=== PATIENT | female | born 1950 | race Caucasian/White ===

== ENCOUNTER 2019-12-16 16:58 | Emergency (ER) | payer MEDICARE, SELFPAY ==
--- NOTE | ~2019-12-16 | XR_ITS ---
EXAMINATION: XR chest 1V portable 12/16/2019 17:46 INDICATION: Chest pressure, fever and headache. Cough. PROCEDURE: AP portable chest COMPARISON: 11/12/2019 FINDINGS: The lungs are clear. The cardiomediastinal silhouette is within normal limits. There are no pleural effusions. There is no pneumothorax suspected. There is a right shoulder arthroplasty. T here are severe degenerative change of the left glenohumeral joint. IMPRESSION: 1: NO ACUTE CARDIOPULMONARY DISEASE. Reviewed, dictated and finalized at location [facility].
--- NOTE | 2019-12-16 17:08 | ECG_ITS ---
Measurements Intervals [place] Rate: 59 P: 56 PA: 201 QRS: -6 QRSD: 106 T: 21 QT: 409 QTc: 408 Interpretive Statements SINUS BRADYCARDIA DELAYED PRECORDIAL R/S TRANSITION INFERIOR INFARCT, AGE INDETERMINATE BORDERLINE ST-T WAVE ABNORMALITY- ANTERIOR LEADS BASELINE ARTIFACT- I, II, III ABNORMAL ECG Electronically Signed On 12-17-2019 7:35:42 CDT by Aneudy Diaz D.O.
--- NOTE | 2019-12-16 17:09 | ED.GENADULT ---
HPI - General Adult General Chief complaint: Unspecified Stated complaint: fever/heaviness in chest/perez/dry cough Time Seen by Provider: 12/16/19 17:02 History of Present Illness HPI narrative: Patient is a 69 y/o female complaining of intermittent, diffuse chest pressure for last 2 weeks. There is no alleviating or aggravating factor. There is no pain radiation. She also has subjective fever, cough and headache. She did not check her temperature. Related Data Allergies Allergy/AdvReac Type Severity Reaction Status Date / Time codeine AdvReac Mild MAKES ME Verified 04/08/19 18:44 FEEL BAD Review of Systems Constitutional: Constitutional: Denies chills, Reports fever(s) (subjective), Reports headache(s) and Denies weakness Eyes: Eyes: Denies blurry vision ENT: Denies headache(s) and Denies neck pain Cardiovascular: Cardiovascular: Reports chest pain and Reports dyspnea Respiratory: Respiratory: Reports cough and Reports dyspnea Gastrointestinal: Gastrointestinal: Denies abdominal pain, Denies diarrhea, Denies nausea and Denies vomiting Genitourinary: Genitourinary: Denies hematuria and Denies dysuria Musculoskeletal: Musculoskeletal: Denies back pain and Denies neck pain Neurologic: Denies headache(s) and Denies weakness PMFSH Past Medical History Medical History HLD (hyperlipidemia) HTN (hypertension) Hypothyroid Seasonal allergies UTI (urinary tract infection) Surgical History Surgical History H/O: hysterectomy History of left ankle joint replacement History of right shoulder replacement Social History Social History Gender identity (if verbalized by the patient): Female Exam Const: General: no acute distress and well developed Orientation/consciousness: oriented to person, oriented to place, oriented to time and patient oriented x3 HENMT: Head: normocephalic Ears: external ears normal General nose exam: Normal external nose present Eyes: General: appearance normal, both eyes and all related structures Conjunctivae: conjunctivae normal Neck: Neck: normal visual inspection and full ROM Chest: Chest palpation & inspection: normal inspection of the chest and no tenderness Resp: Effort & Inspection: normal respiratory effort Auscultation: clear to auscultation bilaterally Cardio: Rate: regular rate Rhythm: regular rhythm GI: GI Palp: No abdominal tenderness and Yes Soft to palpation Skin: General skin exam: normal color and turgor normal Neuro: General: oriented to person, oriented to place, oriented to time and patient oriented x3 Cognition (Neuro): normal cognition Extrem: General: normal to inspection, full ROM and no pedal edema Psych: Appearance: grossly normal Mental Status: mental status grossly normal Affect: normal affect Course Reevaluation(s) Reevaluation #1: Informed patient that COVID test result is still pending. However, vitals are stable with no O2 requirement and Xray is negative. Patient is stable for discharge. Date: 12/16/19 Time: 21:12 Vital Signs Vital signs: Vital Signs Temperature 36.6 C 12/16/19 17:12 Pulse Rate 66 12/16/19 17:12 Respiratory Rate 16 12/16/19 17:12 Blood Pressure 174/93 H 12/16/19 17:12 Pulse Oximetry 98 12/16/19 17:12 Temperature 36.8 C 12/16/19 21:28 Pulse Rate 80 12/16/19 21:28 Respiratory Rate 18 12/16/19 21:28 Blood Pressure 132/60 12/16/19 21:28 Pulse Oximetry 99 12/16/19 21:28 Medical Decision Making Vital Signs Vital Signs: Vital Signs Temperature 36.6 C 12/16/19 17:12 Pulse Rate 66 12/16/19 17:12 Respiratory Rate 16 12/16/19 17:12 Blood Pressure 174/93 H 12/16/19 17:12 Pulse Oximetry 98 12/16/19 17:12 Temperature 36.8 C 12/16/19 21:28 Pulse Rate 80 12/16/19 21:28 Respiratory Rate 18 12/16/19 21:
[2019-12-16 17:12] VITALS: BP 174/93; PULSE 66; RESP 16; TEMP 36.6; O2SAT 98
[2019-12-16 17:27] LABS: Basophils Percent Auto 0.5 % (0.2-1.2); Hematocrit 35.6 % (37.0-47.0); Hemoglobin 11.6 g/dL (12.0-15.0); Immature Granulocyte Absolute 0.02 K/mm3 (0.00-0.031); Immature Granulocyte Percent A 0.2 % (0-0.5); Lymphocytes Absolute Auto 2.39 K/mm3 (0.9-3.2); Mean Corpuscular HGB Conc 32.6 g/dl (32-36); Mean Corpuscular Hemoglobin 28.1 pg (26-34); Mean Corpuscular Volume 86.2 fl (80-100); Mean Platelet Volume 8.5 fl (7.4-10.4); Monocytes Absolute Auto 0.7 K/mm3 (0.1-0.6); Monocytes Percent Auto 8.2 % (2.6-8.5); Neutrophils Absolute Auto 4.7 K/mm3 (1.3-6.7); Neutrophils Percent Auto 53.1 % (45.5-73.1); Platelet Count Result 343 k/mm3 (150-375); Red Blood Count 4.13 M/mm3 (4.2-5.4); Red Cell Distribution Width 14.4 % (11.5-14.5); White Blood Count 8.9 K/mm3 (4.5-10.0)
[2019-12-16 17:44] LABS: Alanine Aminotransferase 17 U/L (4-35); Albumin Level 4.4 g/dL (3.5-5.1); Alkaline Phosphatase 85 U/L (38-126); Aspartate Amino Transferase 26 U/L (14-36); Bilirubin,Total 0.1 mg/dL (0.2-1.3); Blood Urea Nitrogen 17 mg/dL (7-17); Calcium 8.7 mg/dL (8.4-10.2); Carbon Dioxide 25 mmol/L (22-30); Chloride 98 mmol/L (98-107); Estimated CRCL calculation 66 ml/min; Estimated Glomerular Filt Rate > 60; Glucose 107 mg/dL (65-105); Potassium 3.9 mmol/L (3.4-5.0); Sodium 132 mmol/L (137-145)
[2019-12-16 17:56] LABS: NT Pro B Type Natriuretic Pept 362 PG/ML (5-100); Troponin I < 0.012 ng/mL (0.000-0.034)
[2019-12-16 18:14] VITALS: BP 122/78; PULSE 56; RESP 18; O2SAT 99
[2019-12-16 18:19] LABS: D Dimer 0.49 ug/mL (<0.48)
[2019-12-16 19:20] VITALS: BP 138/87; PULSE 55; RESP 18; O2SAT 99
[2019-12-16 21:05] LABS: Troponin I < 0.012 ng/mL (0.000-0.034)
[2019-12-16 21:28] VITALS: BP 132/60; PULSE 80; RESP 18; TEMP 36.8; O2SAT 99
[2019-12-17 10:42] LABS: SARS-CoV-2 RNA PCR Negative
== END 2019-12-16 21:30 | disposition home or self-care (01) ==
PROVIDERS: Emergency Provider Emergency Medicine; PCP Internal Medicine
DX: R07.89 Other chest pain (principal); Z20.828 Contact with and (suspected) exposure to other viral communicable diseases; J06.9 Acute upper respiratory infection, unspecified; E78.5 Hyperlipidemia, unspecified; I10 Essential (primary) hypertension; E03.9 Hypothyroidism, unspecified; Z87.440 Personal history of urinary (tract) infections; Z96.662 Presence of left artificial ankle joint; Z96.611 Presence of right artificial shoulder joint; R00.1 Bradycardia, unspecified; R94.31 Abnormal electrocardiogram [ECG] [EKG]; R06.00 Dyspnea, unspecified
CPT/HCPCS: 36415; 71045; 80053; 83880; 84484; 85025; 85380; 87635; 93005; 99284; C9803; U0003

== ENCOUNTER → 2020-12-10 12:37 | Outpatient (CLI) | payer MEDICARE, SELFPAY ==
--- NOTE | ~2020-12-10 | CT_ITS ---
EXAMINATION: CT brain wo con DATE: 12/10/2020 12:56 INDICATION: Chronic posttraumatic headache TECHNIQUE: Computed tomography (CT) of the head was performed without intravenous contrast. The mA wa s adjusted according to patient size. Iterative reconstruction technique was employed. Exam dose: 52 4.62 mGy-cm total exam DLP. COMPARISON: 04/25/2019 CT brain FINDINGS: No intraperitoneal mass lesion or hemorrhage or cerebrovascular accident is evident. No mid line shift or mass effect effect. There is intracranial cerebral atherosclerosis. There is nonspecific diminished attenuation of the ce rebral white matter, likely due to chronic small vessel ischemic changes. No subdural or epidural hematoma. No fracture or bone destruction of the cranial vault. Included mastoid air cells and paranasal sinuse s are normally developed and aerated with exception of mild soft tissue thickening along the posterio r medial wall of the right sphenoid sinus. IMPRESSION: Cerebral atherosclerosis and chronic small vessel ischemic changes of the cerebral white matter No acute intracranial abnormality Reviewed, dictated and finalized at [facility]. Reviewed, dictated and finalized at location A.
== END ==
PROVIDERS: Visit Provider Nurse Practitioner Family
DX: G44.329 Chronic post-traumatic headache, not intractable (principal)
CPT/HCPCS: 70450

== ENCOUNTER → 2021-04-17 09:58 | Outpatient (CLI) | payer MEDICARE, SELFPAY ==
--- NOTE | ~2021-04-17 | MR_ITS ---
EXAMINATION: MR hip RT wo con DATE: 04/17/2021 11:08 INDICATION: Right hip pain. TECHNIQUE: Magnetic resonance imaging (MRI) of the right hip was performed without intravenous contra st. Sequences included axial and coronal PD-weighted FS FSE and axial T1-weighted FSE of the pelvis. Sequences of the hip included 2D FIESTA, T1-weighted fast GRE, and axial, coronal, and sagittal PD-we ighted FS FSE. COMPARISON: None FINDINGS: Bones/cartilage: There is lumbar dextroscoliosis and severe spondylosis. No fracture. There is severe right hip joint osteoarthritis including full-thickness cartilage loss and superior subchondral cysts. There is mild left hip osteoarthritis. Labrum: There is maceration of the right acetabular labrum. Fluid: There are moderate-sized right and small left hip joint effusions. There is mild bilateral trochanter ic bursitis. Soft tissues: There is a partial tear of right gluteus minimus tendon and moderate tendinopathy of right gluteus me ruth tendon. There is a partial tear of left gluteus minimus tendon. There is mild tendinopathy of le ft gluteus medius medius. There is mild tendinopathy of the hamstring origins. The iliopsoas tendons are normal. There is a right inguinal hernia containing fat. IMPRESSION: 1. Severe right hip osteoarthritis and mild left hip osteoarthritis. 2. Moderate-sized right hip joint effusion and small left hip joint effusion. 3. Partial tears of the bilateral gluteus minimus tendons with mild bilateral trochanteric bursitis. Reviewed, dictated and finalized at location A. PE MARKER IMPRESSION: 1. Severe right hip osteoarthritis and mild left hip osteoarthritis. 2. Moderate-sized right hip joint effusion and small left hip joint effusion. 3. Partial tears of the bilateral gluteus minimus tendons with mild bilateral t rochanteric bursitis.
== END ==
PROVIDERS: Visit Provider Nurse Practitioner Family
DX: M16.11 Unilateral primary osteoarthritis, right hip (principal); M25.451 Effusion, right hip; S76.011A Strain of muscle, fascia and tendon of right hip, initial encounter; M70.61 Trochanteric bursitis, right hip
CPT/HCPCS: 73721

== ENCOUNTER 2022-04-23 12:21 | Emergency (ER) | payer MEDICARE, SELFPAY ==
[2022-04-23 12:35] VITALS: BP 123/73; PULSE 78; RESP 18; TEMP 36.7; O2SAT 94
--- NOTE | 2022-04-23 14:02 | ED.WOUNDLAC ---
HPI - Wound/Laceration General Chief Complaint: Wound/Laceration Stated Complaint: infection on leg Time Seen by Provider: 04/23/22 13:35 History of Present Illness HPI narrative: Patient is a 71-year-old female who presents ER with concerns for a nonhealing wound to the right hip. Developed over a week ago. She has been on oral doxycycline and some topical mupirocin. She finished oral antibiotic. There is no fevers or chills or sweats. No lymphangitic streaking or tenderness. She did not see a spider around her nor does she know if she was bitten. She denies any additional trauma. No vesicles/blisters that she noted. Related Data Allergies Allergy/AdvReac Type Severity Reaction Status Date / Time codeine AdvReac Mild MAKES ME Verified 04/08/19 18:44 FEEL BAD amoxicillin [From Augmentin] AdvReac Nausea Verified 04/23/22 13:39 clavulanic acid AdvReac Nausea Verified 04/23/22 13:39 [From Augmentin] Review of Systems Constitutional: Constitutional: Denies chills and Denies fever(s) Integumentary/Breasts: Skin/Breast: Denies pruritus, Denies erythema, Denies rash and Reports skin ulcer Neurologic: Denies numbness and Denies weakness PMFSH Past Medical History Medical History (Updated 04/23/22 @ 14:06 by Chilango Hearn MD) HLD (hyperlipidemia) HTN (hypertension) Hypothyroid Seasonal allergies UTI (urinary tract infection) Surgical History Surgical History H/O: hysterectomy History of left ankle joint replacement History of right shoulder replacement Social History Social History Gender identity (if verbalized by the patient): Female Exam Narrative: GENERAL: Well-appearing, well-nourished, and in no acute distress. HEAD: Normocephalic, atraumatic. EXTREMITIES: Normal range of motion. No edema. SKIN: Warm, dry. Right hip with 3 areas of healing ulceration. 2 are subhalf centimeter and without any additional granulation tissue. The largest is 1 cm in diameter and has healing tissue in the center. There is no surrounding cellulitis. No abscess. No vesicles or excoriations. NEURO: Alert and oriented x3. PSYCH: Normal mood and affect. Course Course Emergency Course: Given reassurance. This does appear to look like a healing spider bite. Discharge. Vital Signs Vital signs: Vital Signs Temperature 98.0 F 04/23/22 12:35 Pulse Rate 78 04/23/22 12:35 Respiratory Rate 18 04/23/22 12:35 Blood Pressure 123/73 04/23/22 12:35 Pulse Oximetry 94 04/23/22 12:35 Oxygen Delivery Room Air 04/23/22 12:35 Temperature 98.0 F 04/23/22 12:35 Pulse Rate 78 04/23/22 12:35 Respiratory Rate 18 04/23/22 12:35 Blood Pressure 123/73 04/23/22 12:35 Pulse Oximetry 94 04/23/22 12:35 Oxygen Delivery Room Air 04/23/22 12:35 Discharge Plan Discharge Clinical Impression: Skin ulcer Patient Disposition: Home, Self-Care Condition: Stable Instructions: Chronic Wounds (ED) Additional Instructions: You have a healing ulceration to her right hip. There is no evidence of infection. Return the ER if it comes red and hot, its draining pus, you have fever over 100.4 ?F. Follow-up/Referrals: PHYSICIAN NOT ON STAFF,NONSTAFF [Primary Care Provider] - 1 Week
== END 2022-04-23 14:15 | disposition home or self-care (01) ==
PROVIDERS: Emergency Provider Emergency Medicine
DX: L98.499 Non-pressure chronic ulcer of skin of other sites with unspecified severity (principal); E78.5 Hyperlipidemia, unspecified; I10 Essential (primary) hypertension; E03.9 Hypothyroidism, unspecified
CPT/HCPCS: 99281

== ENCOUNTER 2022-09-08 11:00 | Outpatient (RCR) | payer MEDICARE, SELFPAY ==
[2022-06-18 14:38] VITALS: BP_SYST 90
--- NOTE | 2022-06-18 15:36 | PTOPEVAL1 ---
Assessment and note entered by Andrei Ly, PT, DPT Evaluation Information Assessment Status Evaluation Diagnosis L reverse total shoulder and L scapular fx fixation Onset 05/27/22 Subjective Information Pt states overall she is doing well, the first couple of days were rough but now she is doing good. She states first thing in the morning she is pretty sore but this goes away. Pt states she is no longer wearing the sling except for in crowds. Reported Pain Level Pain Score 0: Self Report Assessment PT Clinical Summary Peri presents to therapy today for her initial evaluation with a diagnosis of a L reverse total shoulder arthroplasty performed on 05/27/22. Today she demonstrates active flexion and abduction to ~60 deg, passive flexion to 120 deg, and passive abduction to 90 deg. Skilled physical therapy services are indicated to progress through surgical protocol, to improve ROM, scapular mobility, and to progress towards a return to baseline function. Plan of Care Interventions Electrical Stimulation,Hot Pack/Cold Pack,Manual Therapy,Neuro Re-education,Patient/Caregiver Educati,Therapeutic Activities,Therapeutic Exercise PT Services Indicated Yes Treatment Frequency and 2x/wk for 5 wks Duration These treatments will address the objective and functional deficits as defined above. The patient will be advanced safely and appropriately in order for the patient to progress towards his/her prior level of function. Additional exercises will be introduced and as well as a comprehensive home exercise program upon discharge, if needed, ?to ensure carryover of functional gains achieved in the clinic. This treatment plan has been reviewed and agreement upon by the patient.
[2022-07-19 14:43] VITALS: BP_SYST 135
--- NOTE | 2022-07-19 16:31 | PTOPPROG ---
Assessment and note entered by Andrei Ly, PT, DPT Evaluation Information Assessment Status Progress Diagnosis L reverse total shoulder and L scapular fx fixation Onset 05/27/22 Subjective Information Pt states overall her shoulder is doing pretty good. Assessment PT Clinical Summary Peri presents to therapy today for her progress report following 9 visits of skilled therapy to treat her reverse total shoulder arthroplasty. Today she is making small progress with her active motion, flexion currently to 80 deg and scaption to 70 deg. Passively she is progressing well and is beyond 130 deg in both flexion and scaption. She continues to require extensive cueing to limit substitutions with exercise. She is progressing well towards her goals and reports good compliance with her HEP. Continuation of skilled physical therapy services are indicated to progress through surgical protocol, to limit impairment, and to return to baseline function. Plan of Care Interventions Electrical Stimulation,Hot Pack/Cold Pack,Manual Therapy,Neuro Re-education,Patient/Caregiver Educati,Therapeutic Activities,Therapeutic Exercise PT Services Indicated Yes Treatment Frequency and 2x/wk for 5 wks Duration These treatments will address the objective and functional deficits as defined above. The patient will be advanced safely and appropriately in order for the patient to progress towards his/her prior level of function. Additional exercises will be introduced and as well as a comprehensive home exercise program upon discharge, if needed, ?to ensure carryover of functional gains achieved in the clinic. This treatment plan has been reviewed and agreement upon by the patient.
--- NOTE | 2022-08-03 11:11 | PCPTNOTE ---
Patient canceled this date due to illness.
--- NOTE | 2022-08-05 12:59 | PCPTNOTE ---
Patient called to cancel due to illness.
[2022-08-12 11:01] VITALS: BP_SYST 120
--- NOTE | 2022-08-12 11:58 | PTOPPROG ---
Assessment and note entered by Andrei Ly, PT, DPT Evaluation Information Assessment Status Progress Diagnosis L reverse total shoulder and L scapular fx fixation Onset 05/27/22 Subjective Information Pt states she states she things she is almost fully recovered. Pt reports 80% improvement in her overall symptoms. She states she no longer wakes up in the night d/t shoulder pain. Assessment PT Clinical Summary Peri presents to therapy today for her progress report following 13 visits of skilled therapy to treat her L reverse TSA. Today she demonstrates improvement in her active shoulder, flexion now to 108deg and abduction to 85 deg, but this continues to be decreased from her R shoulder. She reports well controlled pain thus far. Continuation of skilled physical therapy services are indicated to improve active and passive ROM, to progress strength when indicated, to progress through surgical protocol, and to promote unlimited functional mobility. Plan of Care Interventions Electrical Stimulation,Hot Pack/Cold Pack,Manual Therapy,Neuro Re-education,Patient/Caregiver Educati,Therapeutic Activities,Therapeutic Exercise PT Services Indicated Yes Treatment Frequency and 2x/wk for 4 wks Duration These treatments will address the objective and functional deficits as defined above. The patient will be advanced safely and appropriately in order for the patient to progress towards his/her prior level of function. Additional exercises will be introduced and as well as a comprehensive home exercise program upon discharge, if needed, ?to ensure carryover of functional gains achieved in the clinic. This treatment plan has been reviewed and agreement upon by the patient.
--- NOTE | 2022-08-25 11:37 | PCPTNOTE ---
Patient called to cancel on voicemail but left no reason.
[2022-09-08 11:08] VITALS: BP_SYST 140
--- NOTE | 2022-09-08 11:56 | PTOPPROG ---
Assessment and note entered by Andrei Ly, PT, DPT Evaluation Information Assessment Status Progress Diagnosis L reverse total shoulder and L scapular fx fixation Onset 05/27/22 Subjective Information Pt states she went to see her surgeon who extended her therapy order. She states she can not light strengthening now and states the surgeon is worried about her plate staying in place. Assessment PT Clinical Summary Peri presents to therapy today for her progress report following 17 visits of skilled therapy to treat her L reverse total shoulder replacement. Today she demonstrates active flexion of 120 deg and active abduction to 92 deg, she is able to achieve 140 deg of passive motion in ea direction. Currently her shoulder strength is grossly 4/5 and is most limited with overhead motions. Continuation of skilled physial therapy services are indicated to continue progressing ROM and strength, and to promote unlimited functional mobiltiy. Plan of Care Interventions Electrical Stimulation,Hot Pack/Cold Pack,Manual Therapy,Neuro Re-education,Patient/Caregiver Educati,Therapeutic Activities,Therapeutic Exercise PT Services Indicated Yes Treatment Frequency and 2x/wk for 5 wks Duration These treatments will address the objective and functional deficits as defined above. The patient will be advanced safely and appropriately in order for the patient to progress towards his/her prior level of function. Additional exercises will be introduced and as well as a comprehensive home exercise program upon discharge, if needed, ?to ensure carryover of functional gains achieved in the clinic. This treatment plan has been reviewed and agreement upon by the patient.
--- NOTE | 2022-09-13 10:23 | PCPTNOTE ---
This treatment is being continued on visit number [id number]. Please see documentation on both accounts to view progress. Completed interventions, outcomes, and problems have been marked as Inactive to facilitate the copying of the Care plan routine for recurring accounts.
== END 2022-09-13 10:15 | disposition home or self-care (01) ==
LOC: ANHGOSHPT 11:00
DX: Z48.89 Encounter for other specified surgical aftercare (principal); Z96.612 Presence of left artificial shoulder joint
CPT/HCPCS: 97014; 97110; 97112; 97140; 97161; 99199; G0283

== ENCOUNTER 2022-10-14 11:00 | Outpatient (RCR) | payer MEDICARE, SELFPAY ==
--- NOTE | 2022-09-13 10:24 | PCPTNOTE ---
The treatment documented on this account is a continuation of the treatment documented on visit number [id number]. Please see documentation on both accounts to view progress. The Plan of Care has been transitioned and updated within the new V#. I have addressed and agree with the discipline specific Problems, Interventions, and Goals for the current certification period. Completed interventions, outcomes, and problems have been marked as Inactive to facilitate the copying of the Care plan routine for recurring accounts.
--- NOTE | 2022-09-23 11:53 | PCPTNOTE ---
Patient called & cancelled scheduled appointment on 09/20 due to having another doctors appointment.
--- NOTE | 2022-10-05 10:38 | PCPTNOTE ---
Patient called & cancelled scheduled appointment this date due to having a doctors appointment.
[2022-10-14 11:01] VITALS: BP_SYST 128
--- NOTE | 2022-10-14 11:40 | PTOPDC ---
Assessment and note entered by Andrei Ly, PT, DPT Evaluation Information Assessment Status Discharge - Pt Not Present Diagnosis L reverse total shoulder Onset 05/27/23 Subjective Information Pt reports overall her shoulder is doing pretty well. She states sometimes her arm feels tired and weak but this is getting better. Pt reports 90% improvement in overall symptoms. Reported Pain Level Pain Score 0: Self Report Assessment PT Clinical Summary Peri presents to therapy today for her progress report following 25 visits of skilled therapy to treat the strength and mobility deficts following a L reverse total shoulder 05/27/23. Today she demonstrates improve active flexion to 135 deg and abduction to 115 deg, still decreased from her uninvolved side. Her shoulder strength is grossly 4-/5 on the L and 4+/5 on the R. She states she would like to continue her HEP on her own and does not anymore skilled therapy. She will be discharged at this time. Plan of Care PT Services Indicated No
== END 2022-10-15 15:38 | disposition home or self-care (01) ==
LOC: ANHGOSHPT 11:00
DX: Z48.89 Encounter for other specified surgical aftercare (principal); Z96.612 Presence of left artificial shoulder joint
CPT/HCPCS: 97014; 97110; 97112; 97140; 97530; G0283

== ENCOUNTER 2022-12-02 11:00 | Outpatient (RCR) | payer MEDICARE, SELFPAY ==
--- NOTE | 2022-11-03 15:15 | PTOPEVAL1 ---
Assessment and note entered by Andrei Ly, PT, DPT Evaluation Information Assessment Status Evaluation Diagnosis L hip bursitis Subjective Information Pt states she had an injection on her hip a couple of weeks ago and it is doing much better now. She states she was doing some walking the other day and both hips just started to ache. She states she ices her hip daily and does some stretching. Reported Pain Level Pain Score 0: Self Report Assessment PT Clinical Summary Peri presents to therapy today for her initial evaluation with a diagnosis of L hip bursitis. Today she demonstrates good LE strength with hip abduction being the most limited against resistance. She demonstrates tenderness to palpation inferior to the PSIS. She ambulates with a shortened stride length and a mild pelvic drop during R single leg stance. Skilled therapy services are indicated to address strength deficits , pelvic stability, to manage pain, and to return to PLOF. Plan of Care Interventions Electrical Stimulation,Gait Training,Hot Pack/Cold Pack,Manual Therapy,Neuro Re-education,Patient/ Caregiver Educati,Therapeutic Activities, Therapeutic Exercise PT Services Indicated Yes Treatment Frequency and 2x/wk for 4 wks Duration These treatments will address the objective and functional deficits as defined above. The patient will be advanced safely and appropriately in order for the patient to progress towards his/her prior level of function. Additional exercises will be introduced and as well as a comprehensive home exercise program upon discharge, if needed, ?to ensure carryover of functional gains achieved in the clinic. This treatment plan has been reviewed and agreement upon by the patient.
--- NOTE | 2022-11-03 15:16 | OPREHPOC ---
Outpatient Therapy Plan of Care This is a Multidisciplinary Plan of Care that may contain components documented by all disciplines (PT, OT, and ST.) PT Problem 1 PT Problem #1 Knowledge Deficit PT Goal 1 Goal Pt to be IND with issued HEP Target Visit 8 PT Problem 2 PT Problem #2 Pain PT Goal 1 Goal Pt to report hip pain no greater than 3/10 in the last week. Target Visit 8 Progress Met PT Goal 2 Goal Pt to report being able to walk for 1 mile without an increase in hip pain. Target Visit 8 Progress Met PT Problem 3 PT Problem #3 Impaired Strength PT Goal 1 Goal Pt to improve hip abduction strength to 4+/5 Target Visit 8 PT Goal 2 Goal Pt to demonstrate neutral pelvic alignment during ambulation Target Visit 8 PT Problem 4 PT Problem #4 Impaired Gait PT Goal 1 Goal Pt to ambulate 350ft during 2 min walk test Target Visit 8
--- NOTE | 2022-11-18 12:45 | PCPTNOTE ---
pt. called to cancel due to illness
--- NOTE | 2022-11-26 15:32 | PCPTNOTE ---
On 11/26/22, the student, Fawn Chowdary, provided care and completed [facility] documentation on this patient. I have reviewed the student's documentation and agree with the findings.
--- NOTE | 2022-12-02 15:51 | PTOPDC ---
Assessment and note entered by Andrei Ly, PT, DPT Evaluation Information Assessment Status Discharge Diagnosis L hip bursitis Subjective Information Pt states her L hip is doing fine, and now her R hip and knee is starting to bother her. She states she has been using red light therapy and ice baths to help with her back and hip pain. Reported Pain Level Pain Score 0,0,0: Self Report Assessment PT Clinical Summary Peri presents to therapy today for her progress report following 6 visits of skilled therapy to treat her diagnosis of L hip bursitis. Today she demonstrates improved LE strength and balance. She continues to have pelvic asymmetries during ambulation and reports an increase in R hip pain since starting therapy. She has met all of her therapy goals addressing her L hip bursitis and will therefore be discharged from skilled therapy services at this time. Plan of Care PT Services Indicated No
== END 2022-12-03 08:37 | disposition home or self-care (01) ==
LOC: ANHGOSHPT 11:00
DX: M25.552 Pain in left hip (principal); M70.62 Trochanteric bursitis, left hip
CPT/HCPCS: 97110; 97112; 97140; 97161; 97530

== ENCOUNTER 2023-02-11 12:31 | Emergency (ER) | payer MEDICARE, SELFPAY ==
--- NOTE | ~2023-02-11 | XR_ITS ---
EXAMINATION: XR chest 2V DATE: 02/11/2023 13:04 INDICATION: Cough and shortness of breath TECHNIQUE: PA and lateral views of the chest are obtained. COMPARISON: 12/16/2019 FINDINGS: The lungs are free of acute opacities. No pleural effusion or pneumothorax. The cardiomedia stinal silhouette is normal. There is moderate thoracic spondylosis. There are 25 degrees of thoracol umbar levoscoliosis. There are changes of bilateral shoulder arthroplasty. Plate and screw fixation i s seen at the left acromioclavicular joint. IMPRESSION: 1. No acute cardiopulmonary abnormality. Reviewed, dictated and finalized at location B.
--- NOTE | 2023-02-11 12:42 | ED.URI ---
HPI - URI/Sore Throat General Chief Complaint: Upper Respiratory Infection Stated Complaint: COUGH/CHILLS/SORE THROAT Source: patient and RN notes reviewed Mode of arrival: ambulatory Limitations: no limitations History of Present Illness HPI Narrative: 72 y/o female presented for c/o cough for 2 weeks, with fatigue, right frontal headache, and nasal congestion/drainage. States cough is productive and reports sob with exertion and wheezing with the cough. Not taking anything for symptoms. Denies known sick contacts. Denies cp, palpitations, n/v/d/f/c. MD elicited complaint: cough Related Data Home Medications Medication Instructions Recorded Confirmed alprazolam 1 mg tablet 1 mg PO DAILY 02/11/23 02/11/23 amlodipine 5 mg tablet 5 mg PO DAILY 02/11/23 02/11/23 atorvastatin 40 mg tablet 40 mg PO DAILY 02/11/23 02/11/23 diclofenac sodium 75 mg 75 mg PO DAILY 02/11/23 02/11/23 tablet,delayed release ergocalciferol (vitamin D2) 1,250 50,000 unit PO DAILY 02/11/23 02/11/23 mcg (50,000 unit) capsule eszopiclone 3 mg tablet 3 mg PO DAILY 02/11/23 02/11/23 levothyroxine 75 mcg tablet 75 mcg PO DAILY 02/11/23 02/11/23 mirabegron 25 mg tablet,extended 25 mg PO DAILY 02/11/23 02/11/23 release 24 hr (Myrbetriq) omeprazole 20 mg capsule,delayed 20 mg PO DAILY 02/11/23 02/11/23 release ramipril 10 mg capsule 10 mg PO DAILY 02/11/23 02/11/23 simvastatin 40 mg tablet 40 mg PO DAILY 02/11/23 02/11/23 tramadol 50 mg tablet 50 mg PO DAILY 02/11/23 02/11/23 Allergies Allergy/AdvReac Type Severity Reaction Status Date / Time codeine AdvReac Mild MAKES ME Verified 02/11/23 12:46 FEEL BAD amoxicillin [From Augmentin] AdvReac Nausea Verified 02/11/23 12:46 clavulanic acid AdvReac Nausea Verified 02/11/23 12:46 [From Augmentin] Review of Systems Review of Systems: CONSTITUTIONAL: Endorses malaise, denies chills, sweats, fever EYES: Denies visual changes, redness, or discharge ENT: Reports rhinorrhea, congestion, sinus pain, otalgia, sore throat CARDIOVASCULAR: Denies chest pain, palpitations, edema RESPIRATORY: Reports cough, post nasal drainage, dyspnea GASTROINTESTINAL: Denies abdominal pain, nausea, vomiting, diarrhea SKIN: Denies rash or itching MUSCULOSKELETAL: Denies myalgia NEUROLOGIC: Reports right frontal headache PMFSH Past Medical History Medical History (Updated 02/11/23 @ 13:27 by Caro Huffman APRN) HLD (hyperlipidemia) HTN (hypertension) Hypothyroid Seasonal allergies UTI (urinary tract infection) Surgical History Surgical History H/O: hysterectomy History of left ankle joint replacement History of right shoulder replacement Social History Social History Gender identity (if verbalized by the patient): Female Exam Narrative: GENERAL: mildly ill-appearing, nontoxic EYES: conjunctivae clear ENT: Mucous membranes moist. Nasal congestion. TM pearly arellano with dull light reflex bilaterally; no tragal tenderness. Oropharynx erythematous without lesions or exudate NECK: Supple. No lymphadenopathy CHEST: Clear to auscultation, breath sounds equal. Moist cough. No wheezing, rhonchi, rales, or stridor. No respiratory distress, speaks in full sentences. HEART: Regular rate and rhythm. No murmur heard. SKIN: Warm, dry, no rash. NEURO: Alert and oriented x3. PSYCH: Normal mood and affect Course Course Emergency Course: Patient is aware of diagnosis, understands and agrees to treatment plan. Anticipatory guidance given. Patient agrees to follow-up as directed and is aware of reasons to seek care at the emergency department. Portions of this record may have been created with voice recognition software Level of Care: Express Care Visit Vital Signs Vital signs: Vital Signs Temperature 97.4 F L 02/11/23 12:53 Pulse Rate 71 02/11/23 12:53 Respiratory Rate 16
[2023-02-11 12:53] VITALS: BP 142/93; PULSE 71; RESP 16; TEMP 36.3; O2SAT 99
[2023-02-11 12:54] VITALS: BP 142/93; PULSE 71; RESP 16; TEMP 36.3; O2SAT 99
== END 2023-02-11 13:31 | disposition home or self-care (01) ==
PROVIDERS: Emergency Provider Nurse Practitioner Family
DX: J06.9 Acute upper respiratory infection, unspecified (principal); Z20.822 Contact with and (suspected) exposure to COVID-19; E78.5 Hyperlipidemia, unspecified; I10 Essential (primary) hypertension; E03.9 Hypothyroidism, unspecified; Z96.662 Presence of left artificial ankle joint; Z96.611 Presence of right artificial shoulder joint
CPT/HCPCS: 71046; 87426; 99213; C9803; G0463

== ENCOUNTER → 2023-02-28 10:39 | Outpatient (CLI) | payer MEDICARE, SELFPAY ==
--- NOTE | ~2023-02-28 | MR_ITS ---
EXAMINATION: MR lumbar spine wo con DATE: 02/28/2023 11:26 INDICATION: Moderate thoracolumbar scoliosis. Chronic low back pain. TECHNIQUE: Magnetic resonance imaging (MRI) of the lumbar spine was performed without intravenous con trast. Sequences included sagittal T2-weighted FSE, sagittal T2-weighted FS FSE, sagittal T1-weighted FSE, and axial T2-weighted FSE. COMPARISON: None FINDINGS: There is 32 degrees dextroscoliosis of lumbar spine. There is 3 mm retrolisthesis of L2 on L3 and L3 on L4 and 3 mm anterolisthesis of L4 on L5. There is severely decreased disc height from L1 -L2 through L5-S1 with endplate remodeling. The distal spinal cord signal intensity is normal. The co nus medullaris is at L1. The following disc levels are specifically discussed: L1-L2: The disc is bulging. There is severe bilateral facet joint osteoarthritis. There is mild bilat eral neural foraminal stenosis. There is mild central canal stenosis. L2-L3: The disc is bulging. There is mild right and moderate left facet joint osteoarthritis. There i s mild right and moderate left neural foraminal stenosis. There is mild central canal stenosis. L3-L4: The disc is bulging. There is moderate bilateral facet joint osteoarthritis. There is mild rig ht and moderate left neural foraminal stenosis. There is mild central canal stenosis. L4-L5: The disc is bulging. There is severe bilateral facet joint osteoarthritis. There is mild bilat eral neural foraminal stenosis. There is moderate central canal stenosis. L5-S1: The disc is bulging. There is severe right and moderate left facet joint osteoarthritis. There is mild bilateral neural foraminal stenosis. There is mild central canal stenosis. IMPRESSION: 1. Severe lumbar spondylosis. 2. Lumbar dextroscoliosis. Reviewed, dictated and finalized at location A.
== END ==
DX: M41.125 Adolescent idiopathic scoliosis, thoracolumbar region (principal); M47.816 Spondylosis without myelopathy or radiculopathy, lumbar region
CPT/HCPCS: 72148

== ENCOUNTER 2023-03-08 11:36 | Emergency (ER) | payer MEDICARE, SELFPAY ==
--- NOTE | ~2023-03-08 | XR_ITS ---
XR chest 2V DATE: 03/08/2023 13:13 INDICATION: Cough for one month TECHNIQUE: PA and lateral views COMPARISON: 02/11/2023 2 view chest FINDINGS: Heart size is within normal limits. Is aortic calcification and unfolding. No hilar or medi astinal enlargement. Chronic moderate elevation right diaphragm. No pulmonary infiltrate or consolidation, pleural effusion or pulmonary vascular congestion or pneumo thorax. There is dextroscoliosis and degenerative change of the thoracic spine, levoscoliosis of the lower th oracic and upper lumbar spine and rotatory dextroscoliosis of the lumbar spine. Bilateral glenohumeral joint replacement. Plate and screws along the left acromion process. IMPRESSION: No active cardiopulmonary disease or significant change since 02/11/2023 Reviewed, dictated and finalized at location L. IMPRESSION: No active cardiopulmonary disease or significant change since 023
[2023-03-08 11:50] VITALS: BP 134/80; PULSE 77; RESP 20; TEMP 36.5; O2SAT 97
[2023-03-08 13:00] VITALS: RESP 18
--- NOTE | 2023-03-08 13:04 | ED.GENADULT ---
HPI - General Adult General Chief complaint: Unspecified Stated complaint: cough Time Seen by Provider: 03/08/23 13:03 Source: patient Mode of arrival: ambulatory Limitations: no limitations History of Present Illness HPI narrative: Patient is a 72 y/o female who presents to the ED with c/o a cough. Patient reports having a persistent cough for the last 1 month. She was seen at an 3 weeks ago and Rx'd levaquin and short course of steroids. She has since also completed a medrol dosepak. She has also been using tessalon perles and Delsym w/o relief. She reports occasional production of yellowish sputum. She otherwise denies any illness. Denies chest pain, shortness of breath, fevers, congestion, rhinorrhea. Denies sick contacts. Related Data Home Medications Medication Instructions Recorded Confirmed alprazolam 1 mg tablet 1 mg PO DAILY 02/11/23 02/11/23 amlodipine 5 mg tablet 5 mg PO DAILY 02/11/23 02/11/23 atorvastatin 40 mg tablet 40 mg PO DAILY 02/11/23 02/11/23 diclofenac sodium 75 mg 75 mg PO DAILY 02/11/23 02/11/23 tablet,delayed release ergocalciferol (vitamin D2) 1,250 50,000 unit PO DAILY 02/11/23 02/11/23 mcg (50,000 unit) capsule eszopiclone 3 mg tablet 3 mg PO DAILY 02/11/23 02/11/23 levothyroxine 75 mcg tablet 75 mcg PO DAILY 02/11/23 02/11/23 mirabegron 25 mg tablet,extended 25 mg PO DAILY 02/11/23 02/11/23 release 24 hr (Myrbetriq) omeprazole 20 mg capsule,delayed 20 mg PO DAILY 02/11/23 02/11/23 release ramipril 10 mg capsule 10 mg PO DAILY 02/11/23 02/11/23 simvastatin 40 mg tablet 40 mg PO DAILY 02/11/23 02/11/23 tramadol 50 mg tablet 50 mg PO DAILY 02/11/23 02/11/23 Allergies Allergy/AdvReac Type Severity Reaction Status Date / Time codeine AdvReac Mild MAKES ME Verified 03/08/23 13:03 FEEL BAD amoxicillin [From Augmentin] AdvReac Nausea Verified 03/08/23 13:03 clavulanic acid AdvReac Nausea Verified 03/08/23 13:03 [From Augmentin] Review of Systems Review of Systems: CONSTITUTIONAL: Denies fever, chills, or sweats. ENT: Denies rhinorrhea, congestion, sore throat. CARDIOVASCULAR: Denies chest pain, palpitations, or edema. RESPIRATORY: See HPI. GASTROINTESTINAL: Denies abdominal pain, nausea, vomiting, or diarrhea. NEUROLOGIC: Denies headache, numbness, or weakness. All systems reviewed & are unremarkable except as noted in HPI and below PMFSH Past Medical History Medical History HLD (hyperlipidemia) HTN (hypertension) Hypothyroid Seasonal allergies UTI (urinary tract infection) Surgical History Surgical History H/O: hysterectomy History of left ankle joint replacement History of right shoulder replacement Social History Social History Gender identity (if verbalized by the patient): Female Exam Narrative: GENERAL: Elderly, well-nourished, non-toxic, in no acute distress. HEAD: Normocephalic, atraumatic. ENT: MMs moist. NECK: Supple. No adenopathy, no masses. RESPIRATORY: Airway patent, respirations nonlabored. Clear to auscultation bilaterally, no rales, rhonchi, wheezing. No focal lung sounds. Occasional coughing on exam. CARDIOVASCULAR: Regular rate and rhythm without murmurs, rubs, or gallops. Peripheral pulses 2+ and equal bilaterally. MUSCULOSKELETAL: Moves all extremities. Strength/ROM intact without gross deformities. SKIN: Warm, dry, normal color. No rashes. NEURO: A&O X3. Speech clear. Cranial nerves II-XII grossly intact. Steady gait. No ataxic movements. PSYCHIATRIC: Appropriate mood and affect. Normal interaction. Course Vital Signs Vital signs: Vital Signs Temperature 97.7 F 03/08/23 11:50 Pulse Rate 77 03/08/23 11:50 Respiratory Rate 20 03/08/23 11:50 Blood Pressure 134/80 03/08/23 11:50 Pulse Oximetry 97 03/08/23 11:50 Oxyge
[2023-03-08 14:15] VITALS: PULSE 67; RESP 18; O2SAT 98
== END 2023-03-08 14:15 | disposition home or self-care (01) ==
LOC: ANHED 13:40
PROVIDERS: Emergency Provider Physician Assistant
DX: J40 Bronchitis, not specified as acute or chronic (principal); E78.5 Hyperlipidemia, unspecified; I10 Essential (primary) hypertension; E03.9 Hypothyroidism, unspecified; Z96.662 Presence of left artificial ankle joint; Z96.611 Presence of right artificial shoulder joint; Z87.440 Personal history of urinary (tract) infections; Z90.710 Acquired absence of both cervix and uterus
CPT/HCPCS: 71046; 99283

== ENCOUNTER 2023-05-23 08:54 | Emergency (ER) | payer MEDICARE, SELFPAY ==
[2023-05-23 09:08] VITALS: BP 101/69; PULSE 66; RESP 16; TEMP 36.4; O2SAT 93
--- NOTE | 2023-05-23 09:08 | ED.URI ---
HPI - URI/Sore Throat General Chief Complaint: Upper Respiratory Infection Stated Complaint: Cough;Congetion;Rib pain;Flu test Time Seen by Provider: 05/23/23 09:18 Source: patient, RN notes reviewed and old records reviewed Mode of arrival: ambulatory Limitations: no limitations History of Present Illness HPI Narrative: 72 year old female who presents to [facility] care with complaints of cough which comes and goes since February. Patient reports that since last week cough has increased with head congestion, headache with no fever, reports chills and Body aches for the 3 days with generalized weakness. Patient reports that was diagnosed with Influenza on the of this month and would like to be checked for Flu and COVID today. Patient reports that she did have one incidence of vomiting 2 days ago none since,denies any present nausea vomiting or diarrhea.Patient reports that she has been taking Delsym cough syrup, Mucinex, Tylenol and has used her inhaler. Patient reports some lower lateral bilateral rib pain with cough. MD elicited complaint: cough and other (congestion, headache) Pertinent past history: other ( reports bronchitis in February) Onset (ago): week(s) ( 1 week increased symptoms) Consistency: constant Severity: moderate Able to tolerate fluids by mouth: Yes Exacerbating factors: exertion and other (coughing) Treatments prior to arrival: ibuprofen and other ( Delsym, Mucinex) Related Data Home Medications Medication Instructions Recorded Confirmed alprazolam 1 mg tablet 1 mg PO DAILY 02/11/23 05/23/23 amlodipine 5 mg tablet 5 mg PO DAILY 02/11/23 05/23/23 atorvastatin 40 mg tablet 40 mg PO DAILY 02/11/23 05/23/23 diclofenac sodium 75 mg 75 mg PO DAILY 02/11/23 05/23/23 tablet,delayed release ergocalciferol (vitamin D2) 1,250 50,000 unit PO DAILY 02/11/23 05/23/23 mcg (50,000 unit) capsule eszopiclone 3 mg tablet 3 mg PO DAILY 02/11/23 05/23/23 levothyroxine 75 mcg tablet 75 mcg PO DAILY 02/11/23 05/23/23 mirabegron 25 mg tablet,extended 25 mg PO DAILY 02/11/23 05/23/23 release 24 hr (Myrbetriq) omeprazole 20 mg capsule,delayed 20 mg PO DAILY 02/11/23 05/23/23 release ramipril 10 mg capsule 10 mg PO DAILY 02/11/23 05/23/23 tramadol 50 mg tablet 50 mg PO DAILY 02/11/23 05/23/23 celecoxib 100 mg capsule 100 mg PO DAILY 05/23/23 05/23/23 Allergies Allergy/AdvReac Type Severity Reaction Status Date / Time codeine AdvReac Mild MAKES ME Verified 05/23/23 09:03 FEEL BAD amoxicillin [From Augmentin] AdvReac Nausea Verified 05/23/23 09:03 clavulanic acid AdvReac Nausea Verified 05/23/23 09:03 [From Augmentin] Review of Systems Review of Systems: CONSTITUTIONAL: Reports malaise, chills, no sweats, no known fever, reports body aches and feelings of weakness. EYES: Denies visual changes, redness, or discharge. ENT: Reports rhinorrhea, congestion,no sinus pain,no otalgia and no sore throat. CARDIOVASCULAR: Denies chest pain, palpitations, or edema. RESPIRATORY: Reports cough.? Denies dyspnea.states pain lateral lower bilateral ribs with cough GASTROINTESTINAL: Denies abdominal pain, no nausea, one episode of vomiting 2 days ago,none since,denies diarrhea SKIN: Denies rash or itching. MUSCULOSKELETAL: Reports myalgia. NEUROLOGIC: reports headache. All systems reviewed & are unremarkable except as noted in HPI and below PMFSH Past Medical History Medical History Arthritis HLD (hyperlipidemia) HTN (hypertension) Hypothyroid Seasonal allergies UTI (urinary tract infection) Surgical History Surgical History H/O: hysterectomy History of left ankle joint replacement History of right shoulder replacement Social History Social History Gender identity (if verbalized by the patient): Female Comments At time
== END 2023-05-23 09:52 | disposition home or self-care (01) ==
PROVIDERS: Emergency Provider Registered Nurse
DX: J10.1 Influenza due to other identified influenza virus with other respiratory manifestations (principal); E78.5 Hyperlipidemia, unspecified; I10 Essential (primary) hypertension; E03.9 Hypothyroidism, unspecified; Z79.899 Other long term (current) drug therapy; Z79.891 Long term (current) use of opiate analgesic; Z20.822 Contact with and (suspected) exposure to COVID-19
CPT/HCPCS: 87426; 87804; 99213; C9803; G0463

== ENCOUNTER 2023-08-24 12:30 | Outpatient (RCR) | payer MEDICARE, SELFPAY ==
--- NOTE | 2023-07-18 16:44 | OPREHPOC ---
Outpatient Therapy Plan of Care This is a Multidisciplinary Plan of Care that may contain components documented by all disciplines (PT, OT, and ST.) PT Problem 1 PT Problem #1 Knowledge Deficit PT Goal 1 Goal Pt to be IND with issued HEP Target Visit 8 PT Problem 2 PT Problem #2 Pain PT Goal 1 Goal Pt to report back pain no greater than 3/10 in the last week. Target Visit 8 PT Goal 2 Goal Pt to report 50% improvement in overall symptoms. Target Visit 8 PT Problem 3 PT Problem #3 Impaired Functional Mobil PT Goal 1 Goal Pt to improve Oswestry score from 21/50 to 10/50. Target Visit 8 PT Goal 2 Goal Pt to demonstrate 20lb lift and carry without compensations. Target Visit 8 PT Problem 4 PT Problem #4 Impaired Strength PT Goal 1 Goal Pt to demonstrate 5xSTS in less than 15s. Target Visit 8 PT Goal 2 Goal Pt to improve hip abduction strength to 3+/5 Target Visit 8
--- NOTE | 2023-07-18 16:44 | PTOPEVAL1 ---
Assessment and note entered by Andrei Ly, PT, DPT Evaluation Information Assessment Status Evaluation Diagnosis low back pain Subjective Information Pt states she got injections into her flakita SIJ joint last week and feels like she has been doing better since then. She reports her pain as a 12/10 at its worse. She reports a few month history of increasing back pain, with a fall a month ago. She states her alignment and everything is off d/t her ankle replacement many years ago. She states she has always had back pain because her legs are crooked . Pt states she has been using ice, heat, TENS, pain medication, and red light therapy to treat her pain. Reported Pain Level Pain Score 4: Self Report Assessment PT Clinical Summary Peri presents to therapy today for her initial evaluation with a diagnosis of low back and SIJ pain. Today she demonstrates near hypermobility of her BLE, decreased hip strength in all planes, decreased core strength, and poor body mechanics with functional tasks. Skilled therapy services are indicated to address the deficits noted above, to improve stability, to manage pain, and to return to PLOF. Plan of Care Interventions Electrical Stimulation,Gait Training,Hot Pack/Cold Pack,Manual Therapy,Neuro Re-education,Patient/ Caregiver Educati,Therapeutic Activities, Therapeutic Exercise PT Services Indicated Yes Treatment Frequency and 2x/wk for 8 visits Duration These treatments will address the objective and functional deficits as defined above. The patient will be advanced safely and appropriately in order for the patient to progress towards his/her prior level of function. Additional exercises will be introduced and as well as a comprehensive home exercise program upon discharge, if needed, ?to ensure carryover of functional gains achieved in the clinic. This treatment plan has been reviewed and agreement upon by the patient.
--- NOTE | 2023-08-03 14:11 | PCPTNOTE ---
Patient called to cancel this date but did not give a specific reason.
--- NOTE | 2023-08-05 08:56 | PCPTNOTE ---
Patient called & cancelled scheduled appointment this date.
--- NOTE | 2023-08-08 14:12 | PCPTNOTE ---
Patient showed up to appointment today an hour early. She states she was going to wait. After 30 mins of waiting pt states she is not feeling well and would like to cancel her appointment for today.
--- NOTE | 2023-08-15 13:00 | PCPTNOTE ---
Patient called & cancelled scheduled appointment this date due to feeling ill. She has been rescheduled.
--- NOTE | 2023-08-24 13:25 | PTOPDC ---
Assessment and note entered by Andrei Ly, PT, DPT Evaluation Information Assessment Status discharge Diagnosis low back pain Subjective Information Pt states her hip is feeling pretty good, there is just a small part in her back that is still a little sore. She has been diligent with her HEP and has been riding a stationary bike as well. Pt states she has stopped taking some of her medications and it has helped her mental clarity a lot. Reported Pain Level Pain Score 2,2: Self Report Assessment PT Clinical Summary Peri presents to therapy today for her progress report following 5 visits of skilled therapy with a diagnosis of low back and SIJ pain. Today she demonstrates improved hip strength flakita, decreased tenderness to palpation, and improved pain reports . She demonstrates good body mechanics with functional lifts this date. She has met or progressed towards her therapy goals and no longer requires skilled services.
== END 2023-08-24 14:50 | disposition home or self-care (01) ==
LOC: ANHGOSHPT 12:30
DX: M53.3 Sacrococcygeal disorders, not elsewhere classified (principal); M47.816 Spondylosis without myelopathy or radiculopathy, lumbar region; M54.9 Dorsalgia, unspecified; Z91.81 History of falling
CPT/HCPCS: 97110; 97140; 97161; 97530

== ENCOUNTER 2023-09-15 13:42 | Emergency (ER) | payer MEDICARE, SELFPAY ==
[2023-09-15 13:52] VITALS: BP 99/71; PULSE 74; RESP 16; TEMP 36.4; O2SAT 98
[2023-09-15 13:54] VITALS: BP 99/71; PULSE 74; RESP 16; TEMP 36.4; O2SAT 98
--- NOTE | 2023-09-15 14:02 | ED.EAR ---
HPI - Ear Problem General Chief complaint: Ear Stated complaint: CLOGGED EARS/SINUS CONGESTION/+ COVID Time Seen by Provider: 09/15/23 14:02 Source: patient and RN notes reviewed Mode of arrival: ambulatory Limitations: no limitations History of Present Illness HPI Narrative: 72-year-old female presented for complaint of left ear pressure and sinus congestion over the past 10 days. Endorses her tested positive for Covid 4 days ago, and she is presumed positive with similar symptoms. Taking Tylenol for symptoms. Denies sob, wheezing, n/v/d/f/c. Related Data Home Medications Medication Instructions Recorded Confirmed alprazolam 1 mg tablet 1 mg PO DAILY 02/11/23 09/15/23 amlodipine 5 mg tablet 5 mg PO DAILY 02/11/23 09/15/23 atorvastatin 40 mg tablet 40 mg PO DAILY 02/11/23 09/15/23 diclofenac sodium 75 mg 75 mg PO DAILY 02/11/23 09/15/23 tablet,delayed release ergocalciferol (vitamin D2) 1,250 50,000 unit PO DAILY 02/11/23 09/15/23 mcg (50,000 unit) capsule eszopiclone 3 mg tablet 3 mg PO DAILY 02/11/23 09/15/23 levothyroxine 75 mcg tablet 75 mcg PO DAILY 02/11/23 09/15/23 mirabegron 25 mg tablet,extended 25 mg PO DAILY 02/11/23 09/15/23 release 24 hr (Myrbetriq) omeprazole 20 mg capsule,delayed 20 mg PO DAILY 02/11/23 09/15/23 release ramipril 10 mg capsule 10 mg PO DAILY 02/11/23 09/15/23 tramadol 50 mg tablet 50 mg PO DAILY 02/11/23 09/15/23 celecoxib 100 mg capsule 100 mg PO DAILY 05/23/23 05/23/23 Allergies Allergy/AdvReac Type Severity Reaction Status Date / Time codeine AdvReac Mild MAKES ME Verified 09/15/23 13:53 FEEL BAD amoxicillin [From Augmentin] AdvReac Nausea Verified 09/15/23 13:53 clavulanic acid AdvReac Nausea Verified 09/15/23 13:53 [From Augmentin] Review of Systems Review of Systems: CONSTITUTIONAL: Denies malaise, chills, sweats, fever EYES: Denies visual changes, redness, or discharge ENT: Reports rhinorrhea, congestion, sinus pain, otalgia CARDIOVASCULAR: Denies chest pain, palpitations, edema RESPIRATORY: Reports cough, post nasal drainage. Denies dyspnea GASTROINTESTINAL: Denies abdominal pain, nausea, vomiting, diarrhea SKIN: Denies rash or itching MUSCULOSKELETAL: Denies myalgia NEUROLOGIC: Denies headache PMFSH Past Medical History Medical History Arthritis HLD (hyperlipidemia) HTN (hypertension) Hypothyroid Seasonal allergies UTI (urinary tract infection) Surgical History Surgical History H/O: hysterectomy History of left ankle joint replacement History of right shoulder replacement Social History Social History Gender identity (if verbalized by the patient): Female Exam Narrative: GENERAL: well-appearing, nontoxic no acute distress. EYES: PERRLA, conjunctivae clear ENT: Mucous membranes moist. Right TM pearly arellano with dull light reflex; Right TM erythematous, clear effusion, bulging and intact; canal with abrasion to 3o'clock position, no drainage no tragal tenderness. NECK: Supple. No lymphadenopathy CHEST: Clear to auscultation, breath sounds equal. No wheezing, rhonchi, rales, or stridor. No respiratory distress, speaks in full sentences. HEART: Regular rate and rhythm. No murmur heard. SKIN: Warm, dry, no rash. NEURO: Alert and oriented x3. PSYCH: Normal mood and affect Course Course Emergency Course: Patient is aware of diagnosis, understands and agrees to treatment plan. Anticipatory guidance given. Patient agrees to follow-up as directed and is aware of reasons to seek care at the emergency department. Portions of this record may have been created with voice recognition software Level of Care: Express Care Visit Vital Signs Vital signs: Vital Signs Temperature 97.5 F L 09/15/23 13:52 Pulse Rate 74 09/15/23 13:52 Respiratory Rate 16
== END 2023-09-15 14:22 | disposition home or self-care (01) ==
PROVIDERS: Emergency Provider Nurse Practitioner Family
DX: J06.9 Acute upper respiratory infection, unspecified (principal); H65.01 Acute serous otitis media, right ear; M19.90 Unspecified osteoarthritis, unspecified site; E78.5 Hyperlipidemia, unspecified; I10 Essential (primary) hypertension; E03.9 Hypothyroidism, unspecified; Z96.662 Presence of left artificial ankle joint; Z96.611 Presence of right artificial shoulder joint
CPT/HCPCS: 99213; G0463

== ENCOUNTER 2023-12-06 12:30 | Outpatient (RCR) | payer MEDICARE, SELFPAY ==
--- NOTE | 2023-09-19 11:51 | OPREHPOC ---
Outpatient Therapy Plan of Care This is a Multidisciplinary Plan of Care that may contain components documented by all disciplines (PT, OT, and ST.) PT Problem 1 PT Problem #1 Knowledge Deficit PT Goal 1 Goal Pt to be IND with issued HEP Target Visit 8 PT Problem 2 PT Problem #2 Pain PT Goal 1 Goal Pt to report back/hip pain no greater than 3/10 in the last week. Target Visit 8 PT Goal 2 Goal Pt to report 75% improvement in overall symptoms. Target Visit 8 PT Problem 3 PT Problem #3 Impaired Functional Mobil PT Goal 1 Goal Pt to demonstrate a 20lb lift and carry from ground level without compensations. Target Visit 8 PT Goal 2 Goal Pt to report being able to stand/walk for 30 mins prior to needing to sit. Target Visit 8 PT Problem 4 PT Problem #4 Impaired Strength PT Goal 1 Goal Pt to improve hip abduction strength to 4/5 Target Visit 8
--- NOTE | 2023-09-19 11:52 | PTOPEVAL1 ---
Assessment and note entered by Andrei Ly, PT, DPT Evaluation Information Assessment Status Evaluation Diagnosis low back pain Subjective Information Pt states she is getting over Covid and feels weak , she spent almost 2 weeks in bed/with very little movement. She states her keeps forcing her to come to therapy. She reports the same chronic low back pain without a change in symptoms. She states her lower back is still a limiting factor in her day to day tasks . She states sitting for longer than 15-20 mins increases her pain. Reported Pain Level Pain Score 4: Self Report Assessment PT Clinical Summary Peri presents to therapy today for her initial evaluation with a diagnosis of low back pain. Today she demonstrates LE and lumbar ROM that is WNL. She demonstrates decreased core and lateral hip strength, increasing pelvic instability and lumbar strain. She demonstrates poor standing posture with a reported decreased standing tolerance. Skilled therapy services are indicated to address the deficits noted above, to manage pain, and to improve functional mobility. Plan of Care Interventions Electrical Stimulation,Gait Training,Hot Pack/Cold Pack,Manual Therapy,Neuro Re-education,Patient/ Caregiver Educati,Therapeutic Activities, Therapeutic Exercise PT Services Indicated Yes Treatment Frequency and 1x/wk for 6 visits Duration These treatments will address the objective and functional deficits as defined above. The patient will be advanced safely and appropriately in order for the patient to progress towards his/her prior level of function. Additional exercises will be introduced and as well as a comprehensive home exercise program upon discharge, if needed, ?to ensure carryover of functional gains achieved in the clinic. This treatment plan has been reviewed and agreement upon by the patient.
--- NOTE | 2023-10-05 09:11 | PCPTNOTE ---
Patient no showed this date to appointment. Called and left voicemail.
--- NOTE | 2023-10-28 11:28 | OPREHPOC ---
Outpatient Therapy Plan of Care This is a Multidisciplinary Plan of Care that may contain components documented by all disciplines (PT, OT, and ST.) PT Problem 1 PT Problem #1 Knowledge Deficit PT Goal 1 Goal Pt to be IND with issued HEP Target Visit 8 Progress Met PT Problem 2 PT Problem #2 Pain PT Goal 1 Goal Pt to report back/hip pain no greater than 3/10 in the last week. Target Visit 12 Progress Partially Met PT Goal 2 Goal Pt to report 75% improvement in overall symptoms. Target Visit 12 Progress Partially Met PT Problem 3 PT Problem #3 Impaired Functional Mobil PT Goal 1 Goal Pt to demonstrate a 20lb lift and carry from ground level without compensations. Target Visit 12 Progress Partially Met Comment Pain elicited today PT Goal 2 Goal Pt to report being able to stand/walk for 30 mins prior to needing to sit. Target Visit 12 Progress Partially Met PT Problem 4 PT Problem #4 Impaired Strength PT Goal 1 Goal Pt to improve hip abduction strength to 4/5 Target Visit 12 Progress Partially Met
--- NOTE | 2023-10-28 11:29 | PTOPPROG ---
Assessment and note entered by Sridhar Tavarez, PT Evaluation Information Assessment Status Progress Diagnosis Low back pain Subjective Information Patient reports mild improvement but is still having days of increased pain most notably in lateral R hip. Reports that therapy has helped to a degree but she continues to have pain that seems to be dependent on the day and activity. Would like to continue with therapy at this time. Assessment PT Clinical Summary Patient has seen some progress with hip strength and function. She continues to have wavering pain which according to reports today appears to be originating from lumbar spine. Tor continue to benefit from skilled therapy to address deficits for intermediate accountant function and pain relief. Plan of Care Interventions Electrical Stimulation,Gait Training,Hot Pack/Cold Pack,Manual Therapy,Neuro Re-education,Patient/ Caregiver Educati,Therapeutic Activities, Therapeutic Exercise PT Services Indicated Yes Treatment Frequency and 1x/week for 6 visits Duration These treatments will address the objective and functional deficits as defined above. The patient will be advanced safely and appropriately in order for the patient to progress towards his/her prior level of function. Additional exercises will be introduced and as well as a comprehensive home exercise program upon discharge, if needed, ?to ensure carryover of functional gains achieved in the clinic. This treatment plan has been reviewed and agreement upon by the patient.
== END 2023-12-16 14:15 | disposition still patient (30) ==
LOC: ANHGOSHPT 12:30
DX: M53.3 Sacrococcygeal disorders, not elsewhere classified (principal); M54.59 Other low back pain; M25.561 Pain in right knee; Z74.09 Other reduced mobility; Z78.9 Other specified health status; Z91.81 History of falling
CPT/HCPCS: 97014; 97110; 97140; 97161; 97530; G0283

== ENCOUNTER 2023-12-23 12:47 | Outpatient (RCR) | payer MEDICARE, SELFPAY ==
--- NOTE | 2023-12-23 12:27 | PTOPDC ---
Assessment and note entered by Sridhar Tavarez, PT Evaluation Information Assessment Status Discharge Diagnosis Low back pain Subjective Information Reports that she must have slept funny today. She is noting some increased back pain today on the left side. She has injections in flakita knees and low back. Having a little bit of numbness in R lateral hip. Reports that the ankle replacements has felt and become very stiff and she has tried to stay on top of it to work it out. Reported Pain Level Pain Score Mild Pain: Dinh Ordonez Assessment PT Clinical Summary Patient has met all goals for therapy at this point and is suitable for discharge to [facility] at this time. Patient requested time to take care of some other medical issues and will continue exercises independently.
== END 2023-12-23 12:49 | disposition home or self-care (01) ==
LOC: ANHGOSHPT 12:47
DX: M53.3 Sacrococcygeal disorders, not elsewhere classified (principal); Z74.09 Other reduced mobility; Z78.9 Other specified health status; Z91.81 History of falling
CPT/HCPCS: 97110; 97140

== ENCOUNTER 2024-05-26 11:56 | Emergency (ER) | payer MEDICARE, SELFPAY ==
--- NOTE | 2024-05-26 11:58 | ED_ITS ---
HPI - URI/Sore Throat General Chief Complaint: Upper Respiratory Infection Stated Complaint: Cough/Sore Throat Time Seen by Provider: 05/26/24 12:55 Source: patient and RN notes reviewed Mode of arrival: ambulatory Limitations: no limitations History of Present Illness HPI Narrative: 73-year-old female presents with concern for cough for several weeks, chest congestion. She reports she also has started having a sore throat has canker sores on her mouth and on her tongue. She has been taking antihistamine and her regularly prescribed medications MD elicited complaint: cough, sore throat and other (Sores in her mouth) Related Data Home Medications ?Medication ?Instructions ?Recorded ?Confirmed ?Last Taken ?Type alprazolam 1 mg tablet 1 mg PO DAILY 02/11/23 09/15/23 Unknown History amlodipine 5 mg tablet 5 mg PO DAILY 02/11/23 09/15/23 Unknown History atorvastatin 40 mg tablet 40 mg PO DAILY 02/11/23 09/15/23 Unknown History diclofenac sodium 75 mg 75 mg PO DAILY 02/11/23 09/15/23 Unknown History tablet,delayed release ergocalciferol (vitamin D2) 1,250 50,000 unit PO DAILY 02/11/23 09/15/23 Unknown History mcg (50,000 unit) capsule eszopiclone 3 mg tablet 3 mg PO DAILY 02/11/23 09/15/23 Unknown History levothyroxine 75 mcg tablet 75 mcg PO DAILY 02/11/23 09/15/23 Unknown History mirabegron 25 mg tablet,extended 25 mg PO DAILY 02/11/23 09/15/23 Unknown History release 24 hr (Myrbetriq) omeprazole 20 mg capsule,delayed 20 mg PO DAILY 02/11/23 09/15/23 Unknown History release ramipril 10 mg capsule 10 mg PO DAILY 02/11/23 09/15/23 Unknown History tramadol 50 mg tablet 50 mg PO DAILY 02/11/23 09/15/23 Unknown History Allergies Allergy/AdvReac Type Severity Reaction Status Date / Time codeine AdvReac Mild MAKES ME Verified 09/15/23 13:53 FEEL BAD amoxicillin (From Augmentin) AdvReac Nausea Verified 09/15/23 13:53 clavulanic acid (From AdvReac Nausea Verified 09/15/23 13:53 Augmentin) Review of Systems Review of Systems: CONSTITUTIONAL: Denies malaise, chills, sweats, or fever. EYES: Denies visual changes, redness, or discharge. ENT: Reports rhinorrhea, congestion, sinus pain, otalgia. Reports oral sores and sore throat. CARDIOVASCULAR: Denies chest pain, palpitations, or edema. RESPIRATORY: Reports cough and chest congestion. Denies dyspnea. GASTROINTESTINAL: Denies abdominal pain, nausea, vomiting, diarrhea SKIN: Denies rash or itching. MUSCULOSKELETAL: Denies myalgia. NEUROLOGIC: Denies headache. All systems reviewed & are unremarkable except as noted in HPI and below PMFSH Past Medical History Medical History Arthritis HLD (hyperlipidemia) HTN (hypertension) Hypothyroid Seasonal allergies UTI (urinary tract infection) Surgical History Surgical History H/O: hysterectomy History of left ankle joint replacement History of right shoulder replacement Social History Social History Gender identity (if verbalized by the patient): Female Comments At time of signature, agree with nursing past medical, surgical, social and family history. There is no relevant family history pertinent to the presenting complaint Exam Narrative: GENERAL: Well-appearing, well-nourished, and in no acute distress. HEAD: Normocephalic EYES: PERRLA, conjunctivae clear ENT: Nares clear. Mucous membranes moist. TM pearly arellano with dull light reflex bilaterally; no tragal tenderness. Oropharynx not erythematous without lesions. Tonsils not enlarged and without exudate, no drooling, no hoarseness, no trismus, uvula midline. Canker sore noted to the lower inner lip and on the tongue NECK: Supple. No lymphadenopathy CHEST: Very mild lower lobe bronchi, otherwise clear to auscultation, breath sounds equal. No wheezing, rhonchi, rales, or stridor. No respiratory distress, speaks in full sentences. HEART: Regular rate and rhythm. No murmur heard. SKIN: Warm, dry, no rash. NEURO: Alert and oriented x3. PSYCH: Normal mood and affect Course Course Emergency Course: Patient is aware of diagnosis, understands and agrees to treatment plan. Anticipatory guidance given. Patient agrees to follow-up as directed and is aware of reasons to seek care at the emergency department. Portions of this record may have been created with voice recognition software Level of Care: [facility] Visit Vital Signs Vital signs: Reviewed. MDM - URI/Sore Throat MDM Narrative Medical decision making narrative: Differential diagnosis considered: Shin virus, strep pharyngitis, allergic rhinitis, upper respiratory tract infection, sinusitis, rhinosinusitis, n asopharyngitis. viral pharyngitis, otitis media, otitis externa, pneumonia, bronchitis, viral cough syndrome, viral syndrome, and influenza. Exam findings show no acute concerns or changes; patient is non-toxic appearing and is in no distress. Patient is appropriate for outpatient treatment and follow-up. Lab Data Attestation: I reviewed the patient's lab results. Critical Care Time Critical Care Time Critical Care Time: No Discharge Plan Discharge Clinical Impression: Lower respiratory tract infection, Canker sore Patient Disposition: Home, Self-Care Condition: Stable Instructions: Antibiotic Form Additional Instructions: Your rapid strep swab was negative today at [facility]. A throat culture will be sent to the laboratory for further testing. If the test is positive, you will receive a phone call within 48 hours and an appropriate antibiotic will be initiated at that time. Take medications as prescribed Recommend antihistamine such as Benadryl at night time and Zyrtec or Ary during the day Also, recommend symptomatic treatment includes: rest, fluids, and increase humidity of the air at home. Recommend Acetaminophen as directed on the bottle to reduce fever, pain, headache. Please schedule a follow-up visit with your personal physician for further evaluation and treatment within 3-5days. If your symptoms persist, change or worsen significantly before you can contact your personal physician then please, without delay, go to the emergency department for further evaluation. Patient Language: Faroese Prescriptions: New Magic Mouthwash (Dr. Browne) 120 mL suspension 10 ml PO Q4H PRN (Reason: pain) Qty: 120 0RF Rx Instructions: diphenhydramine 12.5 mg/5 mL oral elixir 40 mL; Lidocaine Viscous 2 % mucosal solution 40 mL; Maalox 200 mg-200 mg-20 mg/5 mL oral suspension 40 mL; Per 120 mL swish and spit azithromycin [Zithromax Z-William] 250 mg tablet See Rx Instructions .ROUTE .COMPLEX Qty: 6 0RF Rx Instructions: take 500 mg today (day 1), then 250 mg for 4 days (days 2-5) No Action atorvastatin 40 mg tablet 40 mg PO DAILY alprazolam 1 mg tablet 1 mg PO DAILY amlodipine 5 mg tablet 5 mg PO DAILY tramadol 50 mg tablet 50 mg PO DAILY levothyroxine 75 mcg tablet 75 mcg PO DAILY omeprazole 20 mg capsule,delayed release(DR/EC) 20 mg PO DAILY diclofenac sodium 75 mg tablet,delayed release (DR/EC) 75 mg PO DAILY ergocalciferol (vitamin D2) 1,250 mcg (50,000 unit) capsule 50,000 unit PO DAILY ramipril 10 mg capsule 10 mg PO DAILY eszopiclone 3 mg tablet 3 mg PO DAILY Myrbetriq 25 mg tablet extended release 24 hr 25 mg PO DAILY cefdinir 300 mg capsule 300 mg PO Q12H Qty: 14 0RF Follow-up/Referrals: UNKNOWN,DOCTOR [Non-Staff] - Time of Disposition: 13:05
[2024-05-26 12:18] VITALS: BP 136/76; PULSE 83; RESP 16; TEMP 36.4; O2SAT 99
[2024-05-26 13:21] LABS: EDSTREPNEGPOS1 Negative (Negative)
== END 2024-05-26 13:08 | disposition home or self-care (01) ==
PROVIDERS: Emergency Provider Nurse Practitioner
DX: J22 Unspecified acute lower respiratory infection (principal); K12.0 Recurrent oral aphthae; I10 Essential (primary) hypertension; E78.5 Hyperlipidemia, unspecified; E03.9 Hypothyroidism, unspecified
CPT/HCPCS: 87081; 87880; 99213; G0463

== ENCOUNTER 2024-09-08 13:32 | Emergency (ER) | payer MEDICARE, SELFPAY ==
[2024-09-08 13:44] VITALS: BP 104/90; PULSE 75; RESP 16; TEMP 36.8; O2SAT 96
--- NOTE | 2024-09-08 13:57 | ED.WOUNDLAC ---
HPI - Wound/Laceration General Chief Complaint: Wound/Laceration Stated Complaint: L LEG LACERATION Time Seen by Provider: 09/08/24 13:57 Source: patient, RN notes reviewed and old records reviewed Mode of arrival: ambulatory Limitations: no limitations History of Present Illness HPI narrative: 73 year old female who presents to [facility] care with wound to her left anterior lower leg with redness around wound noted with some clear drainage. Patient reports that she hit her left lower leg on the edge of the engine lathe operator door on Tuesday and cleansed wound and applied Neosporin and Band-aide. Patient reports that she has not had a fever, chills or sweats. Patient reports that she noted redness around the wound today and is concerned for possible start of infection. Patient reports that she did note some clear looking drainage from wound and tissue is tender. Onset (ago): day(s) (5 days ago) Location: other (left lower anterior leg) Place: home Treatments prior to arrival: bandage and other (cleansed wound and applied Neosporin) Related Data Home Medications ?Medication ?Instructions ?Recorded ?Confirmed ?Last Taken ?Type alprazolam 1 mg tablet 1 mg PO DAILY 02/11/23 09/15/23 Unknown History amlodipine 5 mg tablet 5 mg PO DAILY 02/11/23 09/15/23 Unknown History atorvastatin 40 mg tablet 40 mg PO DAILY 02/11/23 09/15/23 Unknown History diclofenac sodium 75 mg 75 mg PO DAILY 02/11/23 09/15/23 Unknown History tablet,delayed release ergocalciferol (vitamin D2) 1,250 50,000 unit PO DAILY 02/11/23 09/15/23 Unknown History mcg (50,000 unit) capsule eszopiclone 3 mg tablet 3 mg PO DAILY 02/11/23 09/15/23 Unknown History levothyroxine 75 mcg tablet 75 mcg PO DAILY 02/11/23 09/15/23 Unknown History mirabegron 25 mg tablet,extended 25 mg PO DAILY 02/11/23 09/15/23 Unknown History release 24 hr (Myrbetriq) omeprazole 20 mg capsule,delayed 20 mg PO DAILY 02/11/23 09/15/23 Unknown History release ramipril 10 mg capsule 10 mg PO DAILY 02/11/23 09/15/23 Unknown History tramadol 50 mg tablet 50 mg PO DAILY 02/11/23 09/15/23 Unknown History Allergies Allergy/AdvReac Type Severity Reaction Status Date / Time codeine AdvReac Mild MAKES ME Verified 09/08/24 13:59 FEEL BAD amoxicillin (From Augmentin) AdvReac Nausea Verified 09/08/24 13:59 clavulanic acid (From AdvReac Nausea Verified 09/08/24 13:59 Augmentin) Review of Systems Review of Systems: CONSTITUTIONAL: Denies fever, chills, or sweats. CARDIOVASCULAR: Denies chest pain, palpitations, or edema. RESPIRATORY: Denies cough or dyspnea. GASTROINTESTINAL: Denies abdominal pain, nausea, vomiting SKIN: Reports redness and swelling around wound on left lower leg with some clear drainage. No vesicle,or pustules noted denies any purulent drainage, reports no warmth to tissue area or acute pain. MUSCULOSKELETAL: Denies myalgia. NEUROLOGIC: Denies headache, numbness All systems reviewed & are unremarkable except as noted in HPI and below PMFSH Past Medical History Medical History (Updated 09/10/24 @ 13:30 by Marga Flores NP) Anxiety and depression Arthritis Hypothyroid UTI (urinary tract infection) HTN (hypertension) HLD (hyperlipidemia) Seasonal allergies Surgical History Surgical History (Updated 09/10/24 @ 13:29 by Marga Flores NP) History of right hip replacement History of back surgery History of left ankle joint replacement History of right shoulder replacement H/O: hysterectomy Social History Social History (Updated 09/10/24 @ 13:27 by Marga Flores NP) Smoking status: Never smoker Alcohol intake: current Alcohol use details: social Substance use type: does not use Living arrangements: with family Gender identity (if verbalized by the patient): Female Comments At time of signature, agree with nursing past medical, surgical, social and family history. There is no relevant family history pertinent to the presenting complaint Exam Narrative: GENERAL: Well-appearing, well-nourished, and in no acute distress. HEAD: Normocephalic, atraumatic. EYES: PERRLA and EOMI. ENT: Nares clear, no rhinorrhea or epistaxis. Mucous membranes moist. NECK: Supple. no lymphadenopathy CHEST: Clear to auscultation. No respiratory distress. no cough noted SAO2 96% on room air HEART: Regular rate and rhythm. No murmur heard. Normal peripheral pulses. ABDOMEN: Soft, nontender, nondistended, normal active bowel sounds. EXTREMITIES: Normal range of motion. No edema. SKIN: Warm, dry. Erythema, induration, tenderness to 1cm X1cm wound to left lower leg with .5cm area of surrounding redness no warmth noted, some clear drainage reported no purulent drainage reported, no pustule or vesicle noted no bruising or sluffing of skin NEURO: No focal deficits. Alert and oriented x3. Course Course Emergency Course: Patient is aware of diagnosis, understands and agrees to treatment plan. Anticipatory guidance given. Patient agrees to follow-up as directed and is aware of reasons to seek care at the emergency department. Portions of this record may have been created with voice recognition software Level of Care: [facility] Visit Vital Signs Vital signs: Vital Signs Temperature 36.8 C 09/08/24 13:44 Pulse Rate 75 09/08/24 13:44 Respiratory Rate 16 09/08/24 13:44 Blood Pressure 104/90 09/08/24 13:44 Pulse Oximetry 96 09/08/24 13:44 Temperature 36.8 C 09/08/24 13:44 Pulse Rate 75 09/08/24 13:44 Respiratory Rate 16 09/08/24 13:44 Blood Pressure 104/90 09/08/24 13:44 Pulse Oximetry 96 09/08/24 13:44 Reviewed MDM - Wound/Laceration Differential Diagnosis Differential diagnosis: Likely other (wound to left lower leg, laceration left lower leg,wound evaluation, cellulitis left lower leg) Medical Records Attestation: I reviewed the patient's medical records. Critical Care Time Critical Care Time Critical Care Time: No Discharge Plan Discharge Clinical Impression: Cellulitis of left leg Leg wound, left Qualifiers: Encounter type: initial encounter Qualified Code(s): S81.802A - Unspecified open wound, left lower leg, initial encounter Patient Disposition: Home Condition: Stable Instructions: Antibiotic Form, Cellulitis (ED), Acute Wounds (ED) Additional Instructions: Cleanse left lower leg whalen area wound with liquid dial soap and rinse well and then apply Bactroban ointment and cover with Telfa and gauze. watch for increasing infection--redness, swelling, drainage Tylenol or ibuprofen for any fever pain follow up with PCP in 7-10 days for a wound check recheck if develop fever, chills, increasing symptom Go to the ER if your symptoms become worse of if ANY new symptoms develop Antibiotic as prescribed complete all doses If your symptoms persist, change or worsen significantly before you can contact your personal physician then please, without delay, go to the emergency department for further evaluation. Follow-up with PCP in 7-10 days or sooner if needed Patient Language: Azerbaijani Prescriptions: New mupirocin [Centany] 2 % ointment 1 applic topical BID Qty: 22 0RF cephalexin 500 mg capsule 500 mg PO Q8H Qty: 21 0RF No Action atorvastatin 40 mg tablet 40 mg PO DAILY alprazolam 1 mg tablet 1 mg PO DAILY amlodipine 5 mg tablet 5 mg PO DAILY tramadol 50 mg tablet 50 mg PO DAILY levothyroxine 75 mcg tablet 75 mcg PO DAILY omeprazole 20 mg capsule,delayed release(DR/EC) 20 mg PO DAILY diclofenac sodium 75 mg tablet,delayed release (DR/EC) 75 mg PO DAILY ergocalciferol (vitamin D2) 1,250 mcg (50,000 unit) capsule 50,000 unit PO DAILY ramipril 10 mg capsule 10 mg PO DAILY eszopiclone 3 mg tablet 3 mg PO DAILY Myrbetriq 25 mg tablet extended release 24 hr 25 mg PO DAILY Magic Mouthwash (Dr. Browne) 120 mL suspension 10 ml PO Q4H PRN (Reason: pain) Qty: 120 0RF Rx Instructions: diphenhydramine 12.5 mg/5 mL oral elixir 40 mL; Lidocaine Viscous 2 % mucosal solution 40 mL; Maalox 200 mg-200 mg-20 mg/5 mL oral suspension 40 mL; Per 120 mL swish and spit Follow-up/Referrals: Markel,Stevenson [Other] Time of Disposition: 14:21 Quality Tomas Coma Scale Eyes: Open Verbal: Oriented and Alert Motor: Follows Commands [place] Coma Total Score: 15
== END 2024-09-08 14:27 | disposition home or self-care (01) ==
PROVIDERS: Emergency Provider Registered Nurse
DX: L03.116 Cellulitis of left lower limb (principal); S81.802A Unspecified open wound, left lower leg, initial encounter; W22.8XXA Striking against or struck by other objects, initial encounter; I10 Essential (primary) hypertension; E78.5 Hyperlipidemia, unspecified; E03.9 Hypothyroidism, unspecified; M19.90 Unspecified osteoarthritis, unspecified site; F41.9 Anxiety disorder, unspecified; Z96.641 Presence of right artificial hip joint; Z96.662 Presence of left artificial ankle joint; Z96.611 Presence of right artificial shoulder joint
CPT/HCPCS: 99213; G0463

== ENCOUNTER 2025-04-13 12:53 | Emergency (ER) | payer MEDICARE, SELFPAY ==
[2025-04-13] VITALS (15 sets, daily range): BP systolic 119–131; BP diastolic 69–89; PULSE 57–64; RESP 17–21; TEMP 36.1; O2SAT 91–100
--- NOTE | ~2025-04-13 | CT_ITS ---
EXAMINATION: CT brain wo ángel, 04/13/2025 13:40 [employer] HISTORY: head injury COMPARISON: No comparisons available. Technique: Axial images obtained of the brain without contrast. One or more of the following dose reduction techniques were used: automated exposure control, adjustment of the mA and/or kV according to patient size, use of iterative reconstruction technique. Findings: No acute infarct or parenchymal hemorrhage. No abnormal mass or mass effect. No midline shift. No extra-axial fluid collections. No hydrocephalus. Mastoid air cells unremarkable. Sinuses and orbits unremarkable. No acute fracture. No significant facial or scalp soft tissue swelling evident. No radiopaque foreign body is seen. Impression: 1.No acute intracranial abnormality. Reviewed, dictated and finalized at location P. [employer] Impression: 1.No acute intracranial abnormality.
[2025-04-13] MEDS: ONDANSETRON INJ 4 MG/2 ML VIAL IV PUSH (13:24)
[2025-04-13 13:29] LABS: Hematocrit 33.5 % (37.0-47.0); Hemoglobin 10.8 g/dL (12.0-15.0); Immature Granulocyte Percent A 0.6 % (0-0.5); Lymphocytes Absolute Auto 1.83 K/mm3 (0.9-3.2); Mean Corpuscular HGB Conc 32.2 g/dl (32-36); Mean Corpuscular Hemoglobin 30.2 pg (26-34); Mean Corpuscular Volume 93.6 fl (80-100); Nucleated Red Blood Cells Absolute Auto 0.000 K/mm3 (0.0-0.012); Nucleated Red Blood Cells Perc 0.0 % (0.0-0.2); Platelet Count Result 225 k/mm3 (150-375); Red Blood Count 3.58 M/mm3 (4.2-5.4); White Blood Count 8.6 K/mm3 (4.5-10.0)
--- NOTE | 2025-04-13 13:31 | ED.FALL ---
HPI - Fall General Chief Complaint: Fall Stated Complaint: glf Time Seen by Provider: 04/13/25 12:59 History of Present Illness HPI Narrative: Patient is a 74-year-old female who presents ER after having a fall outside of her home. She is in the street getting mail bent over and lost balance swelling backwards and striking her head. No loss of consciousness. When she tried to get up she is nauseous and could not get up. No numbness or weakness to an arm or leg. No pain. Patient has had chronic back issues for which she has had injections. Daughter reports the tongue moves the patient can be more confused than other times in the patient is chronically fatigued. Related Data Home Medications ?Medication ?Instructions ?Recorded ?Confirmed ?Last Taken ?Type alprazolam 1 mg tablet 1 mg PO DAILY 02/11/23 09/15/23 Unknown History amlodipine 5 mg tablet 5 mg PO DAILY 02/11/23 09/15/23 Unknown History atorvastatin 40 mg tablet 40 mg PO DAILY 02/11/23 09/15/23 Unknown History diclofenac sodium 75 mg 75 mg PO DAILY 02/11/23 09/15/23 Unknown History tablet,delayed release ergocalciferol (vitamin D2) 1,250 50,000 unit PO DAILY 02/11/23 09/15/23 Unknown History mcg (50,000 unit) capsule eszopiclone 3 mg tablet 3 mg PO DAILY 02/11/23 09/15/23 Unknown History levothyroxine 75 mcg tablet 75 mcg PO DAILY 02/11/23 09/15/23 Unknown History mirabegron 25 mg tablet,extended 25 mg PO DAILY 02/11/23 09/15/23 Unknown History release 24 hr (Myrbetriq) omeprazole 20 mg capsule,delayed 20 mg PO DAILY 02/11/23 09/15/23 Unknown History release ramipril 10 mg capsule 10 mg PO DAILY 02/11/23 09/15/23 Unknown History tramadol 50 mg tablet 50 mg PO DAILY 02/11/23 09/15/23 Unknown History Allergies Allergy/AdvReac Type Severity Reaction Status Date / Time codeine AdvReac Mild MAKES ME Verified 09/08/24 13:59 FEEL BAD amoxicillin (From Augmentin) AdvReac Nausea Verified 09/08/24 13:59 clavulanic acid (From AdvReac Nausea Verified 09/08/24 13:59 Augmentin) Review of Systems Review of Systems: All systems reviewed & are unremarkable except as noted in HPI and below Constitutional: Constitutional: Reports no additional constitutional complaints Cardiovascular: Cardiovascular: Reports no additional cardiovascular complaints Respiratory: Respiratory: Reports no additional respiratory complaints Musculoskeletal: Musculoskeletal: Reports no additional musculoskeletal complaints Neurologic: Reports system reviewed and no additional complaints, except as documented PMFSH Past Medical History Medical History (Updated 04/13/25 @ 16:08 by Chilango Hearn MD) Anxiety and depression Arthritis Hypothyroid UTI (urinary tract infection) HTN (hypertension) HLD (hyperlipidemia) Seasonal allergies Surgical History Surgical History (Updated 09/10/24 @ 13:29 by Marga Flores APRN) History of right hip replacement History of back surgery History of left ankle joint replacement History of right shoulder replacement H/O: hysterectomy Social History Social History (Updated 09/10/24 @ 13:27 by Marga Flores APRN) Alcohol intake: current Alcohol use details: social Substance use type: does not use Living arrangements: with family Gender identity (if verbalized by the patient): Female Exam Narrative: GENERAL: Well-appearing, well-nourished, and in no acute distress. HEAD: Normocephalic, atraumatic. ENT: Mucous membranes moist. NECK: Supple. CHEST: Clear to auscultation. No respiratory distress. HEART: Regular rate and rhythm. Normal peripheral pulses. ABDOMEN: Soft, nontender, nondistended. Back: No reproducible midline tenderness the T/L-spine. No abrasions, step-offs. EXTREMITIES: Normal range of motion. No edema. SKIN: Warm, dry, no rash. NEURO: Alert and oriented x3. PSYCH: Normal mood and affect. Course Course Emergency Course: Patient resting comfortably. Awake alert orient x4. Urinalysis with positive leukocyte esterase and a few white blood cells. Will give a few days of antibiotics though this is unlikely major causing her fall. Discussed diagnosis of concussion. Appropriate for discharge. Vital Signs Vital signs: Vital Signs Temperature 97.0 F L 04/13/25 12:55 Pulse Rate 64 04/13/25 12:55 Respiratory Rate 18 04/13/25 12:55 Blood Pressure 123/89 04/13/25 12:55 Pulse Oximetry 98 04/13/25 12:55 Oxygen Delivery Room Air 04/13/25 12:55 Temperature 97.0 F L 04/13/25 12:55 Pulse Rate 64 04/13/25 14:30 Respiratory Rate 18 04/13/25 14:30 Blood Pressure 123/69 04/13/25 14:46 Pulse Oximetry 97 04/13/25 14:46 Oxygen Delivery Room Air 04/13/25 12:55 MDM - Fall Lab Data 04/13/25 13:24 04/13/25 14:22 Labs: Lab Results 04/13/25 04/13/25 04/13/25 Range/Units 13:24 14:22 14:42 WBC 8.6 (4.5-10.0) K/mm3 RBC 3.58 L (4.2-5.4) M/mm3 Hgb 10.8 L (12.0-15.0) g/dL Hct 33.5 L (37.0-47.0) % MCV 93.6 (80-100) fl MCH 30.2 (26-34) pg MCHC 32.2 (32-36) g/dl RDW 15.7 H (11.5-14.5) % Plt Count 225 (150-375) k/mm3 MPV 9.2 (7.4-10.4) fl Immature Gran % (Auto) 0.6 H (0-0.5) % Neut % (Auto) 68.4 (45.5-73.1) % Lymph % (Auto) 21.3 (18.3-44.2) % Ocean % (Auto) 7.6 (2.6-8.5) % Eos % (Auto) 1.9 (0-4.4) % Baso % (Auto) 0.2 (0.2-1.2) % Lymph # (Auto) 1.83 (0.9-3.2) K/mm3 Ocean # (Auto) 0.7 H (0.1-0.6) K/mm3 Eos # (Auto) 0.2 (0-0.3) K/mm3 Baso # (Auto) 0.0 (0.0-0.1) K/mm3 Abs Immat Gran (auto) 0.05 H (0.00-0.031) K/mm3 Absolute Neuts (auto) 5.9 (1.3-6.7) K/mm3 Absolute Nucleated RBC 0.000 (0.0-0.012) K/mm3 Nucleated RBC % 0.0 (0.0-0.2) % Sodium 133 L (137-145) mmol/L Potassium 3.7 (3.4-5.0) mmol/L Chloride 104 (98-107) mmol/L Carbon Dioxide 23 (22-30) mmol/L Anion Gap 6 (4-12) mmol/L BUN 17 (7-17) mg/dL Creatinine 0.59 L (0.7-1.0) mg/dL Estim Creat Clear Calc 60 ml/min Estimated GFR > 60 (59 - ) Glucose 99 (65-110) mg/dL Calcium 8.3 L (8.4-10.2) mg/dL Total Bilirubin 0.3 (0.2-1.3) mg/dL AST 30 (14-36) U/L ALT 34 (6-35) U/L Alkaline Phosphatase 67 (38-126) U/L Total Protein 6.0 L (6.3-8.2) g/dL Albumin 3.6 (3.5-5.1) g/dL TSH (Reflex) 1.400 (0.465-4.68) uIU/mL Urine Color Yellow (Yellow) Urine Appearance Clear (Clear) Urine pH 6.5 (5.0-9.0) Ur Specific [place] 1.012 (1.001-1.035) Urine Protein Negative (Negative) mg/dL Urine Glucose (UA) Negative (Negative) mg/dL Urine Ketones Negative (Negative) mg/dL Ur Blood (Man) Negative (Negative) Urine Nitrate Negative (Negative) Urine Bilirubin Negative (Negative) Urine Urobilinogen 1.0 (<2.0) mg/dL Leukocyte Esterase Rfl 1+ H (Negative) ANNE/UL Urine RBC 0-2 (0-2) /hpf Urine WBC 6-10 H (0-3) /hpf Ur Squamous Epith Cells None seen (Few) /hpf Urine Bacteria None seen /hpf Urine Casts 0-2 Imaging Data Radiologist's impression: ITS Impressions Head CT 04/13/25 14:09 Impression: 1.No acute intracranial abnormality. ECG Data EKG #1: ECG completion date: 04/13/25 ECG completion time: 14:48 EKG Interpretation: normal rate (61), sinus rhythm, PACs, normal QRS, normal QT and NL axis Discharge Plan Discharge Clinical Impression: Concussion, Acute UTI Patient Disposition: Home Condition: Stable Instructions: Urinary Tract Infection in Women (ED), Concussion (ED) Additional Instructions: Return the ER if you have fever 100.4? F, he cannot keep down food or water, you lose consciousness, or you have additional concerns. Patient Language: Egyptian Prescriptions: No Action mupirocin [Centany] 2 % ointment 1 applic topical BID Qty: 22 0RF cephalexin 500 mg capsule 500 mg PO Q8H Qty: 21 0RF atorvastatin 40 mg tablet 40 mg PO DAILY alprazolam 1 mg tablet 1 mg PO DAILY amlodipine 5 mg tablet 5 mg PO DAILY tramadol 50 mg tablet 50 mg PO DAILY levothyroxine 75 mcg tablet 75 mcg PO DAILY omeprazole 20 mg capsule,delayed release(DR/EC) 20 mg PO DAILY diclofenac sodium 75 mg tablet,delayed release (DR/EC) 75 mg PO DAILY ergocalciferol (vitamin D2) 1,250 mcg (50,000 unit) capsule 50,000 unit PO DAILY ramipril 10 mg capsule 10 mg PO DAILY eszopiclone 3 mg tablet 3 mg PO DAILY Myrbetriq 25 mg tablet extended release 24 hr 25 mg PO DAILY Magic Mouthwash (Dr. Browne) 120 mL suspension 10 ml PO Q4H PRN (Reason: pain) Qty: 120 0RF Rx Instructions: diphenhydramine 12.5 mg/5 mL oral elixir 40 mL; Lidocaine Viscous 2 % mucosal solution 40 mL; Maalox 200 mg-200 mg-20 mg/5 mL oral suspension 40 mL; Per 120 mL swish and spit Follow-up/Referrals: Markel,Stevenson [Other] - 1 Week
[2025-04-13 14:22] LABS: Thyroid Stimulating Hormone Reflex 1.400 uIU/mL (0.465-4.68)
--- NOTE | 2025-04-13 14:32 | ECG_ITS ---
Test Date: 2025-04-13 14:48:41 Measurements Intervals [place] Rate: 61 P: 27 NC: 161 QRS: -7 QRSD: 81 T: 17 QT: 418 QTc: 424 Interpretive Statements SINUS RHYTHM WITH FREQUENT SUPRAVENTRICULAR PREMATURE COMPLEXES NONSPECIFIC ST AND T-WAVE ABNORMALITY ABNORMAL ECG No previous ECG available for comparison Electronically Signed On 04-13-2025 16:23:16 [employer] by Manuel Curiel M.D.
[2025-04-13 14:54] LABS: Add Urine Microscopic? YES; Appearance Urine Clear (Clear); Glucose Urine UA Negative (Negative); Leukocyte Esterase Ur 1+ LEU/UL (Negative); Nitrate Urine Negative (Negative); Non Pathogenic Casts 0-2; Specific Grav Ur 1.012 (1.001-1.035)
[2025-04-13 15:25] LABS: Alanine Aminotransferase 34 U/L (6-35); Albumin Level 3.6 g/dL (3.5-5.1); Alkaline Phosphatase 67 U/L (38-126); Anion Gap 6 mmol/L (4-12); Aspartate Amino Transferase 30 U/L (14-36); Bilirubin,Total 0.3 mg/dL (0.2-1.3); Blood Urea Nitrogen 17 mg/dL (7-17); Calcium 8.3 mg/dL (8.4-10.2); Carbon Dioxide 23 mmol/L (22-30); Chloride 104 mmol/L (98-107); Estimated CRCL calculation 60 ml/min; Estimated Glomerular Filt Rate > 60; Glucose 99 mg/dL (65-110); Potassium 3.7 mmol/L (3.4-5.0); Sodium 133 mmol/L (137-145); Total Protein 6.0 g/dL (6.3-8.2)
== END 2025-04-13 16:48 | disposition home or self-care (01) ==
PROVIDERS: Emergency Provider Emergency Medicine
DX: S06.0X0A Concussion without loss of consciousness, initial encounter (principal); N39.0 Urinary tract infection, site not specified; I10 Essential (primary) hypertension; E03.9 Hypothyroidism, unspecified; E78.5 Hyperlipidemia, unspecified; M19.90 Unspecified osteoarthritis, unspecified site; F41.9 Anxiety disorder, unspecified; F32.A Depression, unspecified; Z96.641 Presence of right artificial hip joint; Z96.611 Presence of right artificial shoulder joint; Z96.662 Presence of left artificial ankle joint; Z87.440 Personal history of urinary (tract) infections; Z90.710 Acquired absence of both cervix and uterus; Z79.899 Other long term (current) drug therapy; W18.39XA Other fall on same level, initial encounter
CPT/HCPCS: 36415; 70450; 80053; 81001; 84443; 85025; 87086; 93005; 99284; J2405